=== PATIENT | male | born 1955 | race Hispanic/Latino ===

== ENCOUNTER → 2018-12-02 | Outpatient (CLI) | payer OTHER ==
--- NOTE | 2018-12-02 17:58 | Diagnostic Imaging Report ---
LEFT KNEE - 3 Images HISTORY: Pain COMPARISON: None available. FINDINGS: Bones: No acute displaced fracture. No aggressive osseous lesion. Joints: Minimal tricompartmental degenerative changes. Soft tissues: Mild posterior superficial soft tissue calcifications. IMPRESSION: 1. No acute radiographic abnormality. 2. Minimal tricompartmental osteoarthrosis. Signed by: Dr. Jared Brito D.O., M.M.M. on 12/02/2018 5:55 PM
== END ==
LOC: RAD 16:26
PROVIDERS: ATTEND Family Medicine
DX: M25.562 Pain in left knee (principal)